=== PATIENT | female | born 1970 | race Two or more races ===

== ENCOUNTER 2020-03-10 05:48 | Day surgery (SDC) | payer OTHER ==
[~2020-03-10 05:48] MED LIST: AMBIEN5 MG PO; CLONAZEPAM2 M1 PO; ZOLOFT25 MG PO
[2020-03-10] MEDS ORDERED: PERCOCET 5-3251 EACH PO (10:39)
[2020-03-10] MEDS ORDERED: NEURONTIN300 MG PO (10:40)
== END 2020-03-10 16:50 | disposition home or self-care (01) ==
LOC: CIR.AMB 05:48
PROVIDERS: ATTEND Surgery
DX: K60.3 Anal fistula (principal); Z20.828 Contact with and (suspected) exposure to other viral communicable diseases

== ENCOUNTER 2020-07-07 06:18 | Day surgery (SDC) | payer OTHER ==
[~2020-07-07 06:18] MED LIST changes: +CLONAZEPAM0.5 MG PO; +NEURONTIN300 MG PO; +PERCOCET 5-3251 EACH PO
[2020-07-07] MEDS ORDERED: DERMOPLAST PAIN78 GM TOP (10:11)
[2020-07-07] MEDS ORDERED: PERCOCET 5-3251 EACH PO (10:11)
[2020-07-07] MEDS ORDERED: KETO10TA2 PO (10:12)
== END 2020-07-07 13:40 | disposition home or self-care (01) ==
LOC: CIR.AMB 06:18
PROVIDERS: ATTEND Surgery
DX: K60.3 Anal fistula (principal); Z20.822 Contact with and (suspected) exposure to COVID-19

== ENCOUNTER 2023-06-26 21:24 | Emergency (ER) | payer OTHER ==
[~2023-06-26] VITALS: Ht 160 cm; Wt 83.5 kg
[~2023-06-26 21:24] MED LIST changes: +DERMOPLAST PAIN78 GM TOP; +KETO10TA2 PO
[2023-06-27 00:14] LABS: HEMATOCRIT 44.3 % (36.0-45.00); HEMOGLOBIN 15.1 g/dL (12.0-15.00); MEAN CELL VOLUME 90.3 fL (80.00-100.00); MEAN CORPUSCULAR HEMOGLOBIN 30.8 pg (27.00-32.0); MEAN CORPUSCULAR HGB CONC 34.1 g/dl (32.0-36.0); PLATELET COUNT 239 K/uL (150-450); RED BLOOD COUNT 4.91 M/uL (4.00-6.00); RED CELL DISTRIBUTION WIDTH 13.1 % (11.5-14.5)
[2023-06-27 00:28] LABS: CALCIUM 8.7 mg/dL (8.5-10.1); CREATININE SERUM 0.79 mg/dL (0.55-1.02); GFR 76.42; POTASSIUM 3.57 mEq/L (3.5-5.1)
[2023-06-27 01:20] LABS: URINE APPEARANCE Cloudy; URINE BILIRRUBIN Negative (NEGATIVE); URINE BLOOD Negative; URINE COLOR Dark Yellow; URINE GLUCOSE Negative (NEGATIVE); URINE LEUKOCYTE Negative; URINE NITRATE Negative; URINE PROTEIN Negative (NEGATIVE)
[2023-06-27 01:23] LABS: URINE BACTERIA 845.4 uL (0.0-1933); URINE EPITHELIAL CELLS 38.5 uL (0.0-38.8); URINE RBC 5.4 uL (0.0-20.8); URINE WBC 2.9 uL (0.0-23.2)
== END 2023-06-27 12:43 | disposition home or self-care (01) ==
LOC: ER 21:26
PROVIDERS: Emergency Medicine
DX: K59.02 Outlet dysfunction constipation (principal); K64.4 Residual hemorrhoidal skin tags; K62.5 Hemorrhage of anus and rectum; R10.9 Unspecified abdominal pain
CPT/HCPCS: 36415; 74022; 74177; Q9965

== ENCOUNTER 2023-06-28 19:47 | Emergency (ER) | payer OTHER ==
[~2023-06-28] VITALS: Ht 165.1 cm; Wt 86.2 kg
[2023-06-28 21:02] LABS: HEMATOCRIT 43.6 % (36.0-45.00); HEMOGLOBIN 15.1 g/dL (12.0-15.00); MEAN CELL VOLUME 91.2 fL (80.00-100.00); MEAN CORPUSCULAR HEMOGLOBIN 31.5 pg (27.00-32.0); MEAN CORPUSCULAR HGB CONC 34.5 g/dl (32.0-36.0); PLATELET COUNT 270 K/uL (150-450); RED BLOOD COUNT 4.78 M/uL (4.00-6.00); RED CELL DISTRIBUTION WIDTH 12.9 % (11.5-14.5)
[2023-06-28 21:26] LABS: ALBUMIN 3.6 gm/dL (3.4-5.0); BILIRUBIN TOTAL 0.52 mg/dL (0.3-1.2); CALCIUM 9.2 mg/dL (8.5-10.1); CREATININE SERUM 0.84 mg/dL (0.55-1.02); GFR 71.2; GLOBULINA 4.1 G/DL (2.4-3.5); POTASSIUM 3.76 mEq/L (3.5-5.1); TOTAL PROTEIN 7.7 gm/dL (6.4-8.2)
== END 2023-06-28 22:07 | disposition home or self-care (01) ==
LOC: ER 19:47
PROVIDERS: General Practice
DX: R10.84 Generalized abdominal pain (principal)